=== PATIENT | female | born 1985 | race Caucasian/White ===

== ENCOUNTER 2020-01-10 18:21 | Emergency (ER) | payer OTHER ==
[2020-01-10 18:33] VITALS: BP 109/68; PULSE 83; RESP 16; TEMP 98.6
--- NOTE | 2020-01-10 19:46 | ED ---
Extremity Problem HPI - General Chief complaint: Extremity Problem,Nontraumatic Stated complaint: Rt leg poss blod clot Time Seen by Provider: 01/10/20 19:02 Source: patient Mode of arrival: ambulatory Limitations: no limitations - History of Present Illness Initial comments: 34-year-old female patient presents to the emergency department today for evalu ation of right thigh pain. Patient states that she developed pain to the medial thigh yesterday that goes up into her groin. States that it hurts worse with walking. Denies any radiation down toward foot. Denies numbness or tingling to her feet. Yesterday she did have some swelling in her legs. She was seen and evaluated by her primary care physician today who sent her here for ultrasound rule out DVT. Patient did drive 40 hours approximately one month ago. She denies history of DVT. Does not take any control. Denies any chest pain or shortness of breath. Denies any palpitations. She denies fever or chills. Patient denies any headache, neck pain, back pain, chest pain, shortness of breath, dizziness, weakness, abdominal pain, nausea, vomiting, or difficulties with bowel movements or urination. - Related Data Allergies Allergy/AdvReac Type Severity Reaction Status Date / Time morphine Allergy Itching Verified 01/10/20 18:29 Estrogens AdvReac Nausea & Verified 01/10/20 18:29 Vomiting Review of Systems ROS Statement: Those systems with pertinent positive or pertinent negative responses have been documented in the HPI. ROS Other: All systems not noted in ROS Statement are negative. Past Medical History Additional Past Medical History / Comment(s): migraines History of Any Multi-Drug Resistant Organisms: None Reported Past Surgical History: Section, Tubal Ligation Past Psychological History: Bipolar, Depression Smoking Status: Current every day smoker Past Alcohol Use History: Occasional Past Drug Use History: Marijuana General Exam Limitations: no limitations General appearance: alert, in no apparent distress, other (This is a well- developed, well-nourished adult female patient in no acute distress. Vital signs upon presentation are temperature 98.6F, pulse 83, respirations 16, blood pressure 109/68, pulse ox 98% on room air.) Respiratory exam: Present: normal lung sounds bilaterally. Absent: respiratory distress, wheezes, rales, rhonchi, stridor Cardiovascular Exam: Present: regular rate, normal rhythm, normal heart sounds. Absent: systolic murmur, diastolic murmur, rubs, gallop, clicks Extremities exam: Present: normal inspection, full ROM, normal capillary refill, other (Appearance of the right thigh appears normal. Skin is pink, warm, dry. Cap refills less than 3 seconds. Pedal pulses are 2+ and equal bilaterally to). Absent: tenderness, pedal edema, joint swelling, calf tenderness Neurological exam: Present: alert, oriented X3, CN II-XII intact Psychiatric exam: Present: normal affect, normal mood Skin exam: Present: warm, dry, intact, normal color. Absent: rash Course Vital Signs 01/10/20 18:29 Temperature 98.6 F Pulse Rate 83 Respiratory 16 Rate Blood Pressure 109/68 O2 Sat by Pulse 98 Oximetry Medical Decision Making - Medical Decision Making 34-year-old female patient presented to the emergency department today for evaluation of right thigh pain. Physical examination is unremarkable. Area is nontender. Neurovascular status is intact. The leg swelling. Ultrasound was obtained and is negative for DVT. I did discuss findings results with the patient. She'll be discharged take Tylenol Motrin for possible muscle strain. She is instructed to follow-up with her primary care physician for recheck in 1- 2 days. Return parameters were discussed in detail. She verbalizes understanding and agrees with this plan. - Radiology Data Radiology results: report reviewed Venous Doppler duplex of the right lower extremity was obtained. Report was reviewed in its entirety. Impression by Dr. Danielson shows right lower she'll be NEGATIVE FOR DVT. Disposition Clinical Impression: Muscle strain of right thigh Disposition: HOME SELF-CARE Condition: Good Instructions (If sedation given, give patient instructions): Muscle Strain (ED) Additional Instructions: Take Tylenol Motrin for pain control. Follow-up with your primary care physician for recheck in 1-2 days. Return to the emergency department immediately for any new, worsening, or concerning symptoms. Is patient prescribed a controlled substance at d/c from ED?: No Referrals: Miki Kaiser MD [Primary Care Provider] - 1-2 days Time of Disposition: 20:16
--- NOTE | 2020-01-10 20:14 | US ---
EXAMINATION TYPE: US venous doppler duplex LE RT DATE OF EXAM: 01/10/2020 8:01 PM COMPARISON: NONE CLINICAL HISTORY: Right thigh pain. Right thigh pain x 1 day. No hx of DVT. Patient does not take blo od thinners. SIDE PERFORMED: Right TECHNIQUE: The lower extremity deep venous system is examined utilizing real time linear array sonog faustino with graded compression, doppler sonography and color-flow sonography. VESSELS IMAGED: External Iliac Vein (EIV) Common Femoral Vein Deep Femoral Vein Greater Saphenous Vein * Femoral Vein Popliteal Vein Small Saphenous Vein * Proximal Calf Veins (* superficial vessels) Right Leg: No evidence of DVT in veins imaged at this time from prox calf veins to EIV. Vessels image d appeared to compress and to show color flow. IMPRESSION: 1. Right lower extremity ultrasound negative for deep venous thrombosis.
== END 2020-01-10 20:31 | disposition home or self-care (01) ==
LOC: EC 18:21
DX: S76.911A Strain of unspecified muscles, fascia and tendons at thigh level, right thigh, initial encounter (principal); F17.200 Nicotine dependence, unspecified, uncomplicated; Z88.5 Allergy status to narcotic agent; Z88.8 Allergy status to other drugs, medicaments and biological substances
CPT/HCPCS: 99283

== ENCOUNTER → 2020-03-06 | Outpatient (CLI) | payer OTHER ==
[2020-03-06 18:53] LABS: African American GFR (CKD) 110.7 (60.0-200.0); Chol/HDL Ratio 3.81; Cholesterol 198 mg/dL (0-200); Glucose 93 mg/dL (70-110); LDL Cholesterol,Calculated 135.8 mg/dL (0.0-131.0); Lithium <0.1 mmol/L (0.5-1.2); Non-African American GFR(CKD) 95.5 (60.0-200.0)
[2020-03-07 00:14] LABS: Hemoglobin A1C 4.9 % (4.0-6.0)
== END | disposition home or self-care (01) ==
LOC: LABWHC1 10:00
PROVIDERS: ATTEND Psychiatry & Neurology Psychiatry
DX: Z51.81 Encounter for therapeutic drug level monitoring (principal); Z79.899 Other long term (current) drug therapy
CPT/HCPCS: 36415; 80061; 80178; 82565; 82947; 83036; 84439; 84443; 84520

== ENCOUNTER → 2020-03-20 | Outpatient (CLI) | payer OTHER | END | disposition home or self-care (01) | LOC: LABWHC1 09:59 | DX: Z51.81 Encounter for therapeutic drug level monitoring (principal); Z79.899 Other long term (current) drug therapy | CPT/HCPCS: 36415; 80178 ==

== ENCOUNTER → 2020-04-24 | Outpatient (CLI) | payer OTHER ==
--- NOTE | 2020-04-24 16:16 | US ---
EXAMINATION TYPE: US pelvic complete plus Doppler DATE OF EXAM: 04/24/2020 COMPARISON: NONE CLINICAL HISTORY: 34-year-old female N80.3 Endometriosis of pelvic peritoneum. Patient stated no know n history of endometriosis, but c/o pelvic pain around menstruation (pre and post); C section x 3; ri ght fallopian tube removed due to ectopic TECHNIQUE: Transabdominal sonographic images of the pelvis were acquired. Date of LMP: 04/15/2020 FINDINGS: EXAM MEASUREMENTS: Uterus: 7.9 x 4.8 x 3.3 cm Endometrial Stripe: 0.7 cm Right Ovary: 3.0 x 2.3 x 1.7 cm Left Ovary: 3.0 x 2.5 x 1.9 cm 1. Uterus: Anteverted; fluid area noted at C section scar = 0.6 x 1.1 x 0.7cm; very small Nabothian Cyst seen in cervix = 0.4 x 0.4 x 0.3cm. 2. Endometrium: thickness is wnl for day 10LMP 3. Right Ovary: A few small follicles are present, largest = 0.6 x 0.7 x 0.9cm 4. Left Ovary: A few small follicles are present, largest as thick walled cyst = 1.5 x 1.9 x 1.2cm Spectral, color and waveform Doppler imaging shows some superimposed arterial venous flow on both s ides. There is no evidence for ovarian torsion. 5. wnlateral Adnexa: wnl 6. Postwnlor l-de-sac: wnl IMPRESSION: 1. No sonographic evidence for ovarian torsion. Normal follicular change on both sides. 2. An 11 x 7 x 6 mm fluid locule along the scar. Findings can be seen with a scar niche and may be a source of pain.
== END | disposition home or self-care (01) ==
LOC: RADUSWWP 14:40
PROVIDERS: ATTEND Family Medicine
DX: N80.3 Endometriosis of pelvic peritoneum (principal)
CPT/HCPCS: 76856

== ENCOUNTER 2020-05-10 12:23 | Emergency (ER) | payer OTHER ==
[2020-05-10] MEDS ORDERED: SODIUM CHLORIDE 0.9% 1,000 ML IV ONE (13:06)
--- NOTE | 2020-05-10 13:13 | ED ---
General Adult HPI - General Chief complaint: Syncope Stated complaint: syncope Time Seen by Provider: 05/10/20 12:25 Source: patient, EMS, RN notes reviewed, old records reviewed Mode of arrival: EMS Limitations: no limitations - History of Present Illness Initial comments: This is a 34-year-old female presents emergency department after having had a sy ncopal episode at work. Patient states she has been vomiting almost every day once in the morning. Patient states she also had a headache after she fell. Patient states she did hit her head but she has no neck pain no numbness weakness. Patient denies any chest pain difficult breathing shortness of breath per patient denies any abdominal pain patient patient denies any diarrhea. Patient does states she is mildly nauseated currently. She denies any recent fever chills. Patient states she did not eat anything today and only drank coffee. - Related Data Home Medications Medication Instructions Recorded Confirmed Cholecalciferol [Vitamin D3 (25 1,000 unit PO DAILY 05/10/20 05/10/20 Mcg = 1000 Iu)] FLUoxetine HCL [PROzac] See Taper PO HS 05/10/20 05/10/20 Ibuprofen [Motrin Ib] 400 mg PO Q8H PRN 05/10/20 05/10/20 [place] Carbonate 600 mg PO HS 05/10/20 05/10/20 lamoTRIgine [LaMICtal] 200 mg PO HS 05/10/20 05/10/20 Allergies Allergy/AdvReac Type Severity Reaction Status Date / Time morphine Allergy Itching Verified 05/10/20 13:51 Estrogens AdvReac Nausea & Verified 05/10/20 13:51 Vomiting Review of Systems ROS Statement: Those systems with pertinent positive or pertinent negative responses have been documented in the HPI. ROS Other: All systems not noted in ROS Statement are negative. Past Medical History Additional Past Medical History / Comment(s): migraines , Bi polar, PTSD History of Any Multi-Drug Resistant Organisms: None Reported Past Surgical History: Section, Tubal Ligation Past Psychological History: Bipolar, Depression, PTSD Smoking Status: Current every day smoker Past Alcohol Use History: Occasional Past Drug Use History: Marijuana General Exam - General Exam Comments Initial Comments: GENERAL: Patient is well-developed and well-nourished. Patient is nontoxic and well- hydrated and is in no acute distress. ENT: Neck is soft and supple. No significant lymphadenopathy is noted. Oropharynx is clear. Moist mucous membranes. Neck has full range of motion without eliciting any pain. EYES: The sclera were anicteric and conjunctiva were pink and moist. Extraocular movements were intact and pupils were equal round and reactive to light. Eyelids were unremarkable. PULMONARY: Unlabored respirations. Good breath sounds bilaterally. No audible rales rhonchi or wheezing was noted. CARDIOVASCULAR: There is a regular rate and rhythm without any murmurs gallops or rubs. ABDOMEN: Soft and nontender with normal bowel sounds. SKIN: Skin is clear with no lesions or rashes and otherwise unremarkable. NEUROLOGIC: Patient is alert and oriented x3. Cranial nerves II through XII are grossly intact. Motor and sensory are also intact. Normal speech, volume and content. Symmetrical smile. MUSCULOSKELETAL: Normal extremities with adequate strength and full range of motion. No lower extremity swelling or edema. No calf tenderness. LYMPHATICS: No significant lymphadenopathy is noted PSYCHIATRIC: Normal psychiatric evaluation. Limitations: no limitations Course Vital Signs 05/10/20 05/10/20 12:24 14:34 Temperature 98.4 F 98.2 F Pulse Rate 62 66 Respiratory 14 19 Rate Blood Pressure 120/90 129/77 O2 Sat by Pulse 99 100 Oximetry Medical Decision Making - Medical Decision Making EKG shows sinus bradycardia 59 bpm LA interval 236 QRS is 88 QT interval 42 QTC is 417. Patient's EKG shows no ST segment or depression. Chest x-ray shows no acute abnormality. Patient was able to ambulate around the emergency department without any problem CT of the brain shows no acute abnormality - Lab Data Result diagrams: 05/10/20 13:28 05/10/20 13:28 Lab Results 05/10/20 05/10/20 05/10/20 Range/Units 13:28 13:28 13:28 WBC 8.4 (3.8-10.6) k/uL RBC 4.52 (3.80-5.40) m/uL Hgb 13.3 (11.4-16.0) gm/dL Hct 41.0 (34.0-46.0) % MCV 90.8 (80.0-100.0) fL MCH 29.4 (25.0-35.0) pg MCHC 32.3 (31.0-37.0) g/dL RDW 13.8 (11.5-15.5) % Plt Count 237 (150-450) k/uL Neutrophils % 70 % Lymphocytes % 19 % Monocytes % 5 % Eosinophils % 4 % Basophils % 1 % Neutrophils # 5.9 (1.3-7.7) k/uL Lymphocytes # 1.6 (1.0-4.8) k/uL Monocytes # 0.4 (0-1.0) k/uL Eosinophils # 0.3 (0-0.7) k/uL Basophils # 0.1 (0-0.2) k/uL PT 10.4 (9.0-12.0) sec INR 1.0 (<1.2) APTT 23.6 (22.0-30.0) sec Sodium 139 (137-145) mmol/L Potassium 4.2 (3.5-5.1) mmol/L Chloride 106 (98-107) mmol/L Carbon Dioxide 26 (22-30) mmol/L Anion Gap 7 mmol/L BUN 12 (7-17) mg/dL Creatinine 0.78 (0.52-1.04) mg/dL Est GFR (CKD-EPI)AfAm >90 (>60 ml/min/1.73 sqM) Est GFR (CKD-EPI)NonAf >90 (>60 ml/min/1.73 sqM) Glucose 95 (74-99) mg/dL Calcium 9.8 (8.4-10.2) mg/dL Magnesium 2.1 (1.6-2.3) mg/dL Total Bilirubin 0.3 (0.2-1.3) mg/dL AST 18 (14-36) U/L ALT 11 (4-34) U/L Alkaline Phosphatase 57 (38-126) U/L Troponin I (0.000-0.034) ng/mL Total Protein 7.2 (6.3-8.2) g/dL Albumin 4.6 (3.5-5.0) g/dL Urine HCG, Qual (Not Detectd) 05/10/20 05/10/20 Range/Units 13:28 14:29 WBC (3.8-10.6) k/uL RBC (3.80-5.40) m/uL Hgb (11.4-16.0) gm/dL Hct (34.0-46.0) % MCV (80.0-100.0) fL MCH (25.0-35.0) pg MCHC (31.0-37.0) g/dL RDW (11.5-15.5) % Plt Count (150-450) k/uL Neutrophils % % Lymphocytes % % Monocytes % % Eosinophils % % Basophils % % Neutrophils # (1.3-7.7) k/uL Lymphocytes # (1.0-4.8) k/uL Monocytes # (0-1.0) k/uL Eosinophils # (0-0.7) k/uL Basophils # (0-0.2) k/uL PT (9.0-12.0) sec INR (<1.2) APTT (22.0-30.0) sec Sodium (137-145) mmol/L Potassium (3.5-5.1) mmol/L Chloride (98-107) mmol/L Carbon Dioxide (22-30) mmol/L Anion Gap mmol/L BUN (7-17) mg/dL Creatinine (0.52-1.04) mg/dL Est GFR (CKD-EPI)AfAm (>60 ml/min/1.73 sqM) Est GFR (CKD-EPI)NonAf (>60 ml/min/1.73 sqM) Glucose (74-99) mg/dL Calcium (8.4-10.2) mg/dL Magnesium (1.6-2.3) mg/dL Total Bilirubin (0.2-1.3) mg/dL AST (14-36) U/L ALT (4-34) U/L Alkaline Phosphatase (38-126) U/L Troponin I <0.012 (0.000-0.034) ng/mL Total Protein (6.3-8.2) g/dL Albumin (3.5-5.0) g/dL Urine HCG, Qual Not Detected (Not Detectd) Disposition Clinical Impression: Syncope Disposition: HOME SELF-CARE Condition: Good Instructions (If sedation given, give patient instructions): Syncope (ED) Is patient prescribed a controlled substance at d/c from ED?: No Referrals: Miki Kaiser MD [Primary Care Provider] - 1-2 days Time of Disposition: 14:56
[2020-05-10 13:48] LABS: Basophils # (A) 0.1 k/uL (0-0.2); Basophils % (A) 1 %; Eosinophils # (A) 0.3 k/uL (0-0.7); Eosinophils % (A) 4 %; HGB 13.3 gm/dL (11.4-16.0); Lymphocytes # (A) 1.6 k/uL (1.0-4.8); Lymphocytes % (A) 19 %; MCH 29.4 pg (25.0-35.0); MCHC 32.3 g/dL (31.0-37.0); MCV 90.8 fL (80.0-100.0); Mean Platelet Volume 8.4; Monocytes # (A) 0.4 k/uL (0-1.0); Monocytes % (A) 5 %; Neutrophils # (A) 5.9 k/uL (1.3-7.7); Neutrophils % (A) 70 %; Platelet Count 237 k/uL (150-450); RBC 4.52 m/uL (3.80-5.40); RDW 13.8 % (11.5-15.5); WBC 8.4 k/uL (3.8-10.6)
[2020-05-10 14:05] LABS: ALT 11 U/L (4-34); AST 18 U/L (14-36); African American GFR (CKD) >90 (>60 ml/min/1.73 sqM); Albumin 4.6 g/dL (3.5-5.0); Alkaline Phosphatase 57 U/L (38-126); Anion Gap 7 mmol/L; Blood Urea Nitrogen 12 mg/dL (7-17); Calcium 9.8 mg/dL (8.4-10.2); Carbon Dioxide 26 mmol/L (22-30); Chloride 106 mmol/L (98-107); Glucose 95 mg/dL (74-99); Magnesium 2.1 mg/dL (1.6-2.3); Non-African American GFR(CKD) >90 (>60 ml/min/1.73 sqM); Sodium 139 mmol/L (137-145); Total Bilirubin 0.3 mg/dL (0.2-1.3); Total Protein 7.2 g/dL (6.3-8.2)
--- NOTE | 2020-05-10 14:22 | XR ---
EXAMINATION TYPE: XR chest 2V DATE OF EXAM: 05/10/2020 COMPARISON: NONE TECHNIQUE: PA and lateral views submitted. HISTORY: Syncope FINDINGS: The lungs are clear and there is no pneumothorax, pleural effusion, or focal pneumonia. Heart size normal. No overt failure. IMPRESSION: 1. No acute process.
--- NOTE | 2020-05-10 14:27 | CT ---
EXAMINATION TYPE: CT brain wo con DATE OF EXAM: 05/10/2020 COMPARISON: None HISTORY: syncope/headache/ dizziness today CT DLP: 1070.4 mGycm. Automated Exposure Control for Dose Reduction was Utilized. TECHNIQUE: CT scan of the head is performed without contrast. FINDINGS: There is no acute intracranial hemorrhage, mass effect, or midline shift identified. The ventricles and sulci are within normal limits in size. The globes are intact and the visualized sin uses are clear. IMPRESSION: No acute intracranial hemorrhage, mass effect, or midline shift is seen.
[2020-05-10 14:28] LABS: Partial Thromboplastin Time 23.6 sec (22.0-30.0); Prothrombin Time 10.4 sec (9.0-12.0)
[2020-05-10 14:38] VITALS: TEMP 98.2
[2020-05-10 14:48] LABS: Potassium 4.2 mmol/L (3.5-5.1)
[2020-05-10 14:57] LABS: Amphetamine Screen,Urine Not Detected (NotDetected); Barbiturate Screen,Urine Not Detected (NotDetected); Benzodiazepines Screen,Urine Not Detected (NotDetected); Cocaine Screen,Urine Not Detected (NotDetected); Methadone Screen, Urine Not Detected (NotDetected); Opiate Screen,Urine Not Detected (NotDetected); Oxycodone Screen, Urine Not Detected (NotDetected); Phencyclidine Screen,Urine Not Detected (NotDetected); Tricyclic Antidepressant,Urine Not Detected (NotDetected); Urn Cannabinoid Scrn Detected (NotDetected)
[2020-05-10 15:12] VITALS: BP 122/66; PULSE 64; RESP 18
== END 2020-05-10 15:12 | disposition home or self-care (01) ==
LOC: EC 12:23
DX: R55 Syncope and collapse (principal); R51.9 Headache, unspecified; R11.2 Nausea with vomiting, unspecified; F31.9 Bipolar disorder, unspecified; F17.200 Nicotine dependence, unspecified, uncomplicated; Z88.5 Allergy status to narcotic agent; Z88.8 Allergy status to other drugs, medicaments and biological substances; Z86.69 Personal history of other diseases of the nervous system and sense organs
CPT/HCPCS: 36415; 70450; 71046; 80053; 80306; 81025; 83605; 83735; 84484; 85025; 85610; 85730; 93005; 96360; 99285

== ENCOUNTER → 2020-08-28 | Outpatient (CLI) | payer OTHER | END | disposition home or self-care (01) | LOC: LABWHC1 10:13 | PROVIDERS: ATTEND Psychiatry & Neurology Psychiatry | DX: Z51.81 Encounter for therapeutic drug level monitoring (principal); Z79.899 Other long term (current) drug therapy | CPT/HCPCS: 36415; 80178 ==

== ENCOUNTER → 2022-06-03 | Outpatient (CLI) | payer BC, OTHER ==
--- NOTE | 2022-06-03 17:14 | CT ---
EXAMINATION TYPE: CT abdomen pelvis wo con CT DLP: 232.3 mGycm, Automated exposure control for dose reduction was used. DATE OF EXAM: 06/03/2022 4:48 PM COMPARISON: None CLINICAL INDICATION:Female, 36 years old with history of R10.9 UNSPECIFIED ABDOMINAL PAIN; left flank pain TECHNIQUE: Axial CT of the abdomen and pelvis. Sagittal and coronal reformats were created on a [employer] workstation. Contrast used: None Oral contrast used: without Oral Contrast FINDINGS: LOWER CHEST: Unremarkable ABDOMEN LIVER: Unremarkable GALLBLADDER AND BILE DUCTS: Unremarkable. PANCREAS: Unremarkable. SPLEEN: Unremarkable. ADRENAL GLANDS: Unremarkable. KIDNEYS AND URETERS: Left 3 mm nonobstructing calculus. No evidence of hydronephrosis. Mild dilation of the left collecting system. No evidence of obstructive calculus. PELVIS BLADDER: Unremarkable REPRODUCTIVE: Unremarkable. ABDOMEN & PELVIS STOMACH AND BOWEL: No evidence of bowel obstruction. Large stool burden throughout the colon. PERITONEUM: No evidence of pneumoperitoneum or free fluid. VASCULATURE: No evidence of aortic aneurysm. MUSCULOSKELETAL: No acute osseous abnormalities, bilateral suspected bony islands in the superior veronica tabulum. LYMPH NODES: No gross evidence for lymphadenopathy. SOFT TISSUE/ABDOMINAL WALL: Unremarkable IMPRESSION: 1. Mild prominence of the left renal collecting system No evidence obstructive calculus. Findings co uld represent recently passed stone. Small 3 mm nonobstructing left renal calculus remains present. N o acute abdominal process. 2. Large stool burden throughout the colon.
== END | disposition home or self-care (01) ==
LOC: RADCTMAIN 16:31
PROVIDERS: ATTEND Family Medicine
DX: N20.0 Calculus of kidney (principal); R10.9 Unspecified abdominal pain
CPT/HCPCS: 74176

== ENCOUNTER → 2023-08-08 | Outpatient (CLI) | payer BC, OTHER ==
--- NOTE | 2023-08-11 09:17 | MM ---
Reason for Exam: Screening (asymptomatic). Baseline mammogram. Patient History: Menarche at age 15. First Full-Term at age 19. Maternal grandmother had breast cancer. Maternal aunt had breast cancer, age 43. Maternal aunt had breast cancer, age 47. Mother had breast cancer, age 41. Last menstrual period: 08/08/2023 Risk Values: Bette 5 year model risk: 0.8%. NCI Lifetime model risk: 17.0%. Prior Study Comparison: Patient's first Mammogram. Tissue Density: The breast tissue is heterogeneously dense. This may lower the sensitivity of mammography. Findings: Analyzed By CAD. There is no suspicious mass in either breast. Calcifications in the upper outer quadrant of the right breast. Recommend spot magnification view. Overall Assessment: Incomplete: need additional imaging evaluation, BI-RAD 0 Management: Special View Mammogram of the right breast. . Patient should continue monthly self-breast exams. A clinical breast exam by your physician is recommended on an annual basis. This exam should not preclude additional follow-up of suspicious palpable abnormalities. Note on Bette scores and lifetime risk: 1. A Bette score greater than 3% is considered moderate risk. If this is the case, consider specialist referral to assess eligibility for a risk reducing agent. 2. If overall lifetime risk for the development of breast cancer is 20% or higher, the patient may qualify for future screening with alternating mammogram and breast MRI. Electronically signed and approved by: Benjamin Bills M.D. Radiologis
== END | disposition home or self-care (01) ==
LOC: RADMAMWWP 08:49
PROVIDERS: ATTEND Family Medicine
DX: Z12.31 Encounter for screening mammogram for malignant neoplasm of breast (principal); Z80.3 Family history of malignant neoplasm of breast
CPT/HCPCS: 77063; 77067

== ENCOUNTER → 2023-08-13 | Outpatient (CLI) | payer BC, OTHER ==
--- NOTE | 2023-08-13 13:44 | MM ---
Reason for Exam: Additional evaluation requested from abnormal screening. Last screening mammogram was performed less than 1 month ago. Patient History: Menarche at age 15. First Full-Term at age 19. Maternal grandmother had breast cancer. Maternal aunt had breast cancer, age 43. Maternal aunt had breast cancer, age 47. Mother had breast cancer, age 41. Risk Values: Bette 5 year model risk: 0.8%. NCI Lifetime model risk: 17.0%. Tissue Density: Right: The breast tissue is heterogeneously dense. This may lower the sensitivity of mammography. Findings: Analyzed By CAD. Area of concern/asymmetry compresses out on spot compression imaging. No suspicious masses, calcifications or distortions. Overall Assessment: Negative, BI-RAD 1 Management: Screening Mammogram of both breasts at age 39. Results were given to the patient verbally at the time of exam. Patient should continue monthly self-breast exams. A clinical breast exam by your physician is recommended on an annual basis. This exam should not preclude additional follow-up of suspicious palpable abnormalities. Note on Bette scores and lifetime risk: 1. A Bette score greater than 3% is considered moderate risk. If this is the case, consider specialist referral to assess eligibility for a risk reducing agent. 2. If overall lifetime risk for the development of breast cancer is 20% or higher, the patient may qualify for future screening with alternating mammogram and breast MRI. Electronically signed and approved by: Ricco Medellin DO
== END | disposition home or self-care (01) ==
LOC: RADMAMWWP 13:02
PROVIDERS: ATTEND Family Medicine
DX: R92.331 Mammographic heterogeneous density, right breast (principal); Z80.3 Family history of malignant neoplasm of breast
CPT/HCPCS: 77061; 77065